=== PATIENT | female | born 1995 | race Caucasian/White ===

== ENCOUNTER 2017-04-27 21:42 | Emergency (ER) | payer OTHER ==
[~2017-04-27 21:42] MED LIST: PREN1PAK PO
--- NOTE | 2017-04-27 22:27 | PD ---
HPI Chief Complaint Possibly leaking fluid per vagina and contractions Date Seen: Apr 27, 2017 Time Seen: 22:22 Travel History International Travel<30 Days: No Contact w/Intl Traveler<30Days: No Known Affected Area: No History of Present Illness HPI Patient is 22-year-old white female at 39 weeks [facility] and presents combining of leakage of fluid per vagina contractions , no bleeding, heart rate tracing is reactive, she is vitaliy occasionally Weeks Gestation: 39 Para: 0 : 1 History Social History Alcohol Use: No Tobacco Use: No Substance Abuse: No Allergies-Medications (Allergen,Severity, Reaction): Coded Allergies: No Known Allergies (Unverified Adverse Reaction, Unknown, 04/27/17) Home Meds Active Scripts W/O Vit A W/ Fe Carbo Pack (Citranatal Assure Pack) 35-1 & 300 Mg Pack , 1 EA PO DAILY for Nutritional Supplement for 90 Days, #6 BLISTER 3 Refills 30 day supply. Prov:Bin Ovalle MD 03/05/17 Review of Systems General / Constitutional: No: Fever, Weight Gain, Chills, Other Eyes: No: Diploplia, Blurred Vision, Visual changes, Pain, Photophobia HENT: No: Headaches, Vertigo, Lightheadedness Cardiovascular: No: Irregular Rhythm, Chest Pain or Discomfort, Palpitations, Tachycardia, Syncope, Varicosities, Edema, Cyanosis Respiratory: No: Cough, Short of Breath, Other Gastrointestinal: No: Nausea, Vomiting, Diarrhea Genitourinary: No: Decreased Urinary Output, Oliguria Musculoskeletal: No: Limited ROM, Weakness, Cramping, Edema, Pain Skin: No Rash, No Itching, No Dryness, No Lumps, No Change in Pigmentation, No Change in Nails, No Alopecia, No Lesions Neurologic: No: Weakness, Dizziness, Syncope, Focal Abnormalities, Coordination Problem, Headache, Slurred Speech, Seizures Psychiatric: No: Depression, Suicidal Ideations, Homicidal Ideation Endocrine: No: Heat Intolerance, Cold Intolerance, Polydipsia, Polyuria, Other Physical Exam Narrative GENERAL: Well-nourished, well-developed patient. SKIN: Warm and dry. HEAD: Normocephalic and atraumatic. EYES: No scleral icterus. No injection or drainage. ENT: No nasal drainage noted. Mucous membranes pink. Airway patent. NECK: Supple, trachea midline. No JVD. CARDIOVASCULAR: Regular rate and rhythm without murmurs, gallops, or rubs. RESPIRATORY: Breath sounds equal bilaterally. No accessory muscle use. BREASTS: Bilateral exam showed no masses , no retractions, no nipple discharge. ABDOMEN/GI: Abdomen soft, non-tender, bowel sounds present, no rebound, no guarding Gravid to [39-] weeks size Fundal Height: [-39] GENITOURINARY: External Genitalia: intact and normal in appearance BUS glands: [-] Cervix: [-] Dilatation: [1-] Effacement: [-thick] Station: [-3] Presentation: [vtx-] Membranes: [intact amnisure neg] Uterine Contractions: [irreg-] FHT's: Category: [1-] Baseline: [133-] Reactive: [-yes] Variability: [mod-] Decels: [0-] EXTREMITIES: No cyanosis or edema. BACK: Nontender without obvious deformity. No CVA tenderness. NEUROLOGICAL: Awake and alert. Motor and sensory grossly within normal limits. Five out of 5 muscle strength in all muscle groups. Normal speech. Data Data Labs amnisure neg MDM Interpretation(s) Patient is 22-year-old white female at 39 weeks presents combining of leakage of fluid and contractions. There amnio sure is negative 2 night. Contractions are irregular. Cervix is 1 cm and thick. The heart rate tracing is reactive Plan Plan to discharge home to increase rest if needed., Increase fluids for hydration, Tylenol as needed when necessary, and follow-up with her OB provider, return here sooner for any increase leakage bleeding or pain. Diagnosis Diagnosis: Primary Impression: No leakage of amniotic fluid into vagina Additional Impression: Eloy Aguilar contractions Disposition: DISCHARGE HOME Condition: Stable Yasmany España II, MD Apr 27, 2017 22:27
[2017-04-27] MEDS ORDERED: PREN1TAB45 (22:43)
== END 2017-04-27 22:56 | disposition home or self-care (01) ==
LOC: HOBED 21:42
DX: O47.1 False labor at or after 37 completed weeks of gestation (principal); Z3A.39 39 weeks gestation of pregnancy
CPT/HCPCS: 59025; 84112

== ENCOUNTER 2017-05-01 11:24 | Inpatient (IN) | payer OTHER ==
[~2017-05-01] VITALS: Ht 165.1 cm; Wt 115.0 kg
[2017-05-01] VITALS (23 sets, daily range): BP systolic 103–149; BP diastolic 48–96; PULSE 68–110; RESP 18–20; TEMP 97.9–98; O2SAT 99–100
[~2017-05-01 11:24] MED LIST changes: +PREN1TAB45
[2017-05-01] MEDS: LACTATED RINGER'S 1000 ML INJ 1,000 ML IV SCH ×3 (12:09→22:33)
[2017-05-01] MEDS ORDERED: LACTATED RINGER'S 1000 ML INJ 1,000 ML IV PRN (12:09)
[2017-05-01] MEDS ORDERED: PENICILLIN G POTASSIUM INJ 5,000,000 UNITS in SODIUM CHLORIDE 0.9% INJ 100 ML IV ONE (12:15)
[2017-05-01] MEDS ORDERED: MINERAL OIL 10 ML VIAL TOPICAL PRN (12:15)
[2017-05-01] MEDS ORDERED: LIDOCAINE HCL 1% 50 ML VIAL INFIL PRN (12:15)
[2017-05-01] MEDS ORDERED: CITRIC ACID-SODIUM CITRATE LIQ 30 ML UDC PO SCH (12:15)
[2017-05-01] MEDS ORDERED: LIDOCAINE HCL 1% 50 ML VIAL I-DERMAL PRN (12:15)
[2017-05-01] MEDS ORDERED: SODIUM CHLORID 0.9% 500 ML INJ 500 ML IV PRN (12:15)
[2017-05-01] MEDS ORDERED: OXYTOCIN 30 UNITS-500ML PREMIX 500 ML IV ONE (12:15)
--- NOTE | 2017-05-01 12:22 | PD ---
HPI Chief Complaint Water broke Date Seen: May 01, 2017 Travel History International Travel<30 Days: No Contact w/Intl Traveler<30Days: No Known Affected Area: No History of Present Illness HPI Patient is a 22-year-old at 40/3 weeks gestation, patient of [facility] for [facility], that presents to the [facility] because her water broke around 8 AM this morning. Patient also states that she has been having some contractions that are about 8-10 minutes apart. She states that she has not had any problems during this . Her last ultrasound was at 38 weeks and the baby was head down and weighed around 8-10 pounds. She is expecting a baby boy. She denies vaginal bleeding, headache, shortness of breath, chest pain, blurry vision, dysuria, abnormal vaginal discharge. Notably, she is GBS positive. She does not desire an epidural at this time. Weeks Gestation: 40 Para: 0 : 1 History Past Medical History Narrative Medical GERD on Prilosec Obstetric History Obstetric History GBS Positive Past Surgical History Surgical History: No Previous Surgery Family History Narrative Family History Dad has hypertension Social History Alcohol Use: No Tobacco Use: No Substance Abuse: No Allergies-Medications (Allergen,Severity, Reaction): Coded Allergies: No Known Allergies (Unverified Adverse Reaction, Unknown, 04/30/17) Home Meds Active Scripts W/O Vit A W/ Fe Carbo Pack (Citranatal Assure Pack) 35-1 & 300 Mg Pack , 1 EA PO DAILY for Nutritional Supplement for 90 Days, #6 BLISTER 3 Refills 30 day supply. Prov:Bin Ovalle MD 03/05/17 Reported Medications Vit,Calc76/Iron/Folic (Pnv 29-1 Tablet) 29 Mg Iron-1 Mg Tablet, DAILY 04/27/17 Review of Systems General / Constitutional: No: Fever, Chills Eyes: No: Blurred Vision HENT: No: Headaches Cardiovascular: No: Chest Pain or Discomfort Respiratory: No: Cough, Short of Breath Gastrointestinal: No: Nausea, Vomiting, Diarrhea Genitourinary: No: Dysuria Musculoskeletal: Cramping, No: Weakness Skin: No Rash Neurologic: No: Weakness Physical Exam Narrative GENERAL: Well-nourished, well-developed patient. SKIN: Warm and dry. HEAD: Normocephalic and atraumatic. EYES: No scleral icterus. No injection or drainage. ENT: No nasal drainage noted. Mucous membranes pink. Airway patent. NECK: Supple, trachea midline. No JVD. CARDIOVASCULAR: Regular rate and rhythm without murmurs, gallops, or rubs. RESPIRATORY: Breath sounds equal bilaterally. No accessory muscle use. BREASTS: Bilateral exam showed no masses , no retractions, no nipple discharge. ABDOMEN/GI: Abdomen soft, non-tender, bowel sounds present, no rebound, no guarding Gravid to 40 weeks size GENITOURINARY: External Genitalia: intact and normal in appearance Cervix: Posterior Dilatation: 1cm Effacement: 60% Station: -3 Presentation: Cephalic Membranes: ruptured Uterine Contractions: present, spaced out FHT's: Category: I Baseline: 130 Reactive: multiple accels present Variability: Moderate Decels: None EXTREMITIES: No cyanosis or edema. BACK: Nontender without obvious deformity. No CVA tenderness. NEUROLOGICAL: Awake and alert. Motor and sensory grossly within normal limits. Five out of 5 muscle strength in all muscle groups. Normal speech. Data Data Orders Orders Ob (2e) Additional Admit Info (05/01/17 12:11) Admit To Inpatient (05/01/17 ) Code Status (05/01/17 12:09) Vital Signs (Adult) .Per protocol (05/01/17 12:09) Activity Oob Ad Carolynn (05/01/17 12:09) Heart (05/01/17 12:09) Amnioinfusion (05/01/17 12:09) Urinary Catheter Management .ONCE (05/01/17 12:09) Lactated Ringer's 1000 Ml Inj (Lr 1000 M (05/01/17 12:09) Lactated Ringer's 1000 Ml Inj (Lr 1000 M (05/01/17 12:09) Sodium Chlorid 0.9% 500 Ml Inj (Ns 500 M (05/01/17 12:15) Sodium Chlor 0.9% 1000 Ml Inj (Ns 1000 M (05/01/17 12:29) Lidocaine 1% Inj (50 Ml) (Xylocaine 1% I (05/01/17 12:15) Citric Acid-Sodium Citrate Liq (Bicitra (05/01/17 12:15) Fentanyl Inj (Fentanyl Inj) (05/01/17 12:15) Fentanyl Inj (Fentanyl Inj) (05/01/17 12:15) Penicillin G Potassium Inj (Pfizerpen-G (05/01/17 12:15) Penicillin G Potassium Inj (Pfizerpen-G (05/01/17 16:15) Complete Blood Count With Diff (05/01/17 12:09) Hold Clot (05/01/17 12:09) Abo/Rh Blood Type (05/01/17 12:09) Urinalysis - C+S If Indicated (05/01/17 12:09) Drug Screen, Random Urine (05/01/17 12:09) Rapid Plasma Regin (Rpr) W Ttr (05/01/17 12:09) Resp Oxygen Non Rebreathe Mask (05/01/17 ) ^ Epidural / Intrathecal Infus (05/01/17 12:09) Oxytocin 30 Units-500ml Premix (Pitocin (05/01/17 12:15) Lidocaine 1% Inj (50 Ml) (Xylocaine 1% I (05/01/17 12:15) Light Mineral Oil (Muri-Lube Oil) (05/01/17 12:15) Inpatient Certification (05/01/17 ) [facility] Medical Record Reviewed: Yes Interpretation(s) 22 year old at 40/3 weeks gestation presents with spontaneous rupture of membranes, amnisure positive. GBS positive. Plan 1. 40 weeks gestation of 2. Postdates 3. SROM 4. GBS Positive -Intrauterine, cephalic presentation - heart tones reassuring at category I -Admit to L&D -Start PCN prophylaxis for GBS -Epidural if desired -Pitocin to augment labor -Continue routine antepartum care -Expect vaginal delivery Eko,Tasia Odom MD R2 May 01, 2017 12:22
[2017-05-01] MEDS ORDERED: SODIUM CHLOR 0.9% 1000 ML INJ 1,000 ML IV PRN (12:29)
[2017-05-01] MEDS ORDERED: OXYTOCIN 30 UNITS-500ML PREMIX 500 ML IV SCH (12:45)
[2017-05-01 13:12] LABS: AUTOMATED NEUTROPHIL # 8.9 TH/MM3 (1.8-7.7); BASOPHIL % 0.2 % (0.0-2.0); EOSINOPHIL # 0.1 TH/MM3 (0-0.4); EOSINOPHIL % 0.4 % (0.0-4.0); HEMATOCRIT 35.1 % (35.0-46.0); HEMO FLAGS DIFF FINAL; LYMPH % 19.6 % (9.0-44.0); LYMPHOCYTE # 2.4 TH/MM3 (1.0-4.8); MEAN CELL VOLUME 75.1 FL (80.0-100.0); MEAN CORPUSCULAR HEMOGLOBIN 23.9 PG (27.0-34.0); MEAN CORPUSCULAR HGB CONC 31.9 % (32.0-36.0); MONO % 6.5 % (0.0-8.0); NEUT % 73.3 % (16.0-70.0); PLATELET COUNT 194 TH/MM3 (150-450); RED BLOOD COUNT 4.67 MIL/MM3 (4.00-5.30); RED CELL DISTRIBUTION WIDTH 17.4 % (11.6-17.2); WHITE BLOOD COUNT 12.2 TH/MM3 (4.0-11.0)
[2017-05-01 13:14] LABS: BLOOD, URINE NEG (NEG); COMMENT (UR) CULT NOT INDICATED; CULTURE IF INDICATED CULT NOT INDICATED; GLUCOSE,URINE NEG (NEG); KETONE, URINE NEG (NEG); MUCUS URINE FEW /lpf (OCC); NITRITE,URINE NEG (NEG); PH, URINE 5.5 (5.0-8.5); SQUAMOUS EPITHELIAL CELL URINE 1 /hpf (0-5); URINE COLOR YELLOW (YELLW/STRAW)
[2017-05-01] MEDS ORDERED: ONDANSETRON HCL 4 MG/2 ML VIAL ONE (19:44)
[2017-05-01] MEDS ORDERED: ONDANSETRON HCL 4 MG/2 ML VIAL IV PUSH PRN (20:15)
[2017-05-01] MEDS ORDERED: ePHEDrine/NS 25 MG/5 ML SYRINGE ONE (20:21)
[2017-05-01] MEDS ORDERED: fentaNYL 2MCG-BUPIV 0.125% INJ 100 ML ONE (20:21)
--- NOTE | 2017-05-01 22:12 | PD.LABORPN ---
Subjective Subjective Patient resting comfortably on her left side. Recently received amnioinfusion and pitocin stopped. No complaints at this time. Objective Vital Signs Vital Signs Date Time Temp Pulse Resp B/P (MAP) Pulse Ox O2 Delivery O2 Flow Rate FiO2 05/01/17 22:01 91 108/48 (68) 05/01/17 21:31 108 141/73 (95) 05/01/17 21:30 98 99 05/01/17 21:26 106 130/76 (94) 05/01/17 21:25 110 99 05/01/17 21:21 96 123/66 (85) 05/01/17 21:20 98 99 05/01/17 21:16 93 135/72 (93) 05/01/17 21:15 99 99 05/01/17 21:11 84 131/81 (98) 05/01/17 21:10 100 05/01/17 21:10 80 05/01/17 21:06 89 135/82 (99) 05/01/17 21:05 100 05/01/17 21:05 92 05/01/17 21:02 20 05/01/17 21:01 79 149/80 (103) 05/01/17 20:00 94 148/83 (104) 05/01/17 19:36 97.9 20 05/01/17 19:03 83 136/82 (100) 05/01/17 19:01 68 146/96 (113) Objective Pelvic Exam: Dilatation: 2 Effacement: 80 Station: -2 Presentation: vertex Membranes: ruptured FHT's: Category: 2 Baseline: 125 Reactive: yes Variability: moderate Decels: variable Weeks Gestation: 40 Assessment/Plan Assessment and Plan 22 year old at 40/3 weeks gestation presents with spontaneous rupture of membranes, amnisure positive. GBS positive. 1. 40 weeks gestation of 2. Postdates 3. SROM 4. GBS Positive -Intrauterine vertex - heart tones category 2 -PCN prophylaxis for GBS -Pitocin temporarily stopped -Recently administered amnioinfusion -Continue to monitor progress -Expect vaginal delivery, consider for non-reassuring tracings Simone Shore MD R1 May 01, 2017 22:11
[2017-05-01] MEDS ORDERED: DO NOT ADMINISTER ANTICOAGULANTS PRN (22:15)
[2017-05-01] MEDS ORDERED: ePHEDrine/NS 25 MG/5 ML SYRINGE IV PUSH PRN (22:15)
[2017-05-01] MEDS ORDERED: NO SYSTEM NARCOTICS PRN (22:15)
[2017-05-01] MEDS: PENICILLIN G POTASSIUM INJ 2,500,000 UNITS in SODIUM CHLORIDE 0.9% INJ 100 ML IV SCH (22:31)
[2017-05-02] VITALS (58 sets, daily range): BP systolic 113–146; BP diastolic 55–94; PULSE 73–111; RESP 16–22; TEMP 97.5–99.3; O2SAT 97–99
[2017-05-02] MEDS: fentaNYL 2MCG-BUPIV 0.125% 100 ML EPIDURAL SCH ×2 (00:31→04:37)
[2017-05-02] MEDS: PENICILLIN G POTASSIUM INJ 2,500,000 UNITS in SODIUM CHLORIDE 0.9% INJ 100 ML IV SCH ×4 (02:10→18:00)
[2017-05-02] MEDS: LACTATED RINGER'S 1000 ML INJ 1,000 ML IV SCH (04:08)
--- NOTE | 2017-05-02 07:46 | PD.LABORPN ---
Subjective Subjective Overnight, pt received epidural and baby was intolerant of pitocin which needed to be stopped several times. In btw, excellent variability and accels. This morning, pt rechecked and is /-2. Experiencing nausea. Has FSE in place. Objective Vital Signs Vital Signs Date Time Temp Pulse Resp B/P (MAP) Pulse Ox O2 Delivery O2 Flow Rate FiO2 05/02/17 07:16 99.2 18 05/02/17 07:01 78 118/73 (88) 05/02/17 06:31 125/71 (89) 05/02/17 06:31 93 05/02/17 06:01 83 122/65 (84) 05/02/17 05:31 91 138/58 (84) 05/02/17 05:07 18 05/02/17 05:01 83 129/78 (95) 05/02/17 04:59 18 05/02/17 04:58 97.5 05/02/17 04:31 86 126/68 (87) 05/02/17 04:01 77 113/68 (83) 05/02/17 03:31 78 120/69 (86) 05/02/17 03:01 80 127/70 (89) 05/02/17 02:31 77 128/74 (92) 05/02/17 02:10 98.3 18 05/02/17 02:01 83 124/72 (89) 05/02/17 01:31 80 123/68 (86) 05/02/17 01:01 89 123/75 (91) 05/02/17 00:50 18 05/02/17 00:31 89 127/82 (97) 05/02/17 00:01 73 132/88 (103) Objective FHTs: 115, +accels, occasional variable decels, moderate variability [place]: ctx q 1-4m Cvx: /-1 Weeks Gestation: 40 Assessment/Plan Assessment and Plan 22y/o G1 @ 40.4wks with PROM -- watching FHTs closely, mostly cat 1 to 2 tracing -- d/c pitocin and allow natural labor at this time, restart PRN -- bicitra/zofran for nausea Dispo: pt counseled on possible need for c/s if baby does not tolerate active labor Rm Soto MD 16, 2017 07:46
--- NOTE | 2017-05-02 10:43 | PD.LABORPN ---
Subjective Subjective Pt comfortable, s/p epidural. Objective Vital Signs Vital Signs Date Time Temp Pulse Resp B/P (MAP) Pulse Ox O2 Delivery O2 Flow Rate FiO2 05/02/17 07:16 99.2 18 05/02/17 07:01 78 118/73 (88) 05/02/17 06:31 125/71 (89) 05/02/17 06:31 93 05/02/17 06:01 83 122/65 (84) 05/02/17 05:31 91 138/58 (84) 05/02/17 05:07 18 05/02/17 05:01 83 129/78 (95) 05/02/17 04:59 18 05/02/17 04:58 97.5 05/02/17 04:31 86 126/68 (87) 05/02/17 04:01 77 113/68 (83) 05/02/17 03:31 78 120/69 (86) 05/02/17 03:01 80 127/70 (89) FHR 110s, good variability, no decells. cat 1 now TOCO q 2-5 minutes. Pitocin at 5mu/min. SVE: 5-6cm/80%/-2. Objective Pelvic Exam: Cervix: [soft-] Dilatation: [5-6cm] Effacement: [80%] Station: [-2] Presentation: vertex] Membranes: ruptured] Uterine Contractions: [2-6minutes] PITOCIN at 2mu/min, IUPC in place FHT's: Category: [1] Baseline: [110s] FSE applied. Reactive: [+] Variability: [moderate] Decels: [none] Weeks Gestation: 40 Assessment/Plan Assessment and Plan 22 yo at 40 weeks and 4 days. SROM Continue Pitocin per protocol. Will recheck in 2 hours. Expectant. Johnathan Miranda MD May 02, 2017 10:43
--- NOTE | 2017-05-02 16:32 | PD.LABORPN ---
Subjective Subjective Remains comfortable with epidural. Objective Vital Signs Vital Signs Date Time Temp Pulse Resp B/P (MAP) Pulse Ox O2 Delivery O2 Flow Rate FiO2 05/02/17 10:51 20 05/02/17 10:31 93 130/80 (97) 05/02/17 10:01 98 125/78 (94) 05/02/17 09:31 91 115/74 (88) 05/02/17 09:01 85 126/71 (89) 05/02/17 08:31 94 122/75 (91) Objective Pelvic Exam: Cervix: [soft] Dilatation: [6cm] Effacement: [90%] Station: [-2] Presentation: [vertex] Membranes: [ ruptured] Uterine Contractions: [every 2-3 minutes] FHT's: Category: [1] Baseline: [110s] Reactive: [Y] Variability: [good] Decels: [none] Weeks Gestation: 40 Assessment/Plan Assessment and Plan Term labor. Patient has made minimal cervical change in 2 hours. FHR is Cat 1, and she remains comfortable. There is 2+ caput, no moulding. We have discussed C Section for arrest of dilatation. Patient has requested 'more time'. We plan re-evaluation in 2 hours, as long as FHR is reassuring. Johnathan Miranda MD May 02, 2017 16:32
--- NOTE | 2017-05-02 18:28 | PD.OB.ANTE ---
Subjective Interval History Remains comfortable with epidural. Objective Vital Signs Vital Signs Date Time Temp Pulse Resp B/P (MAP) Pulse Ox O2 Delivery O2 Flow Rate FiO2 05/02/17 17:01 81 121/73 (89) 05/02/17 10:51 20 05/02/17 10:31 93 130/80 (97) 05/02/17 10:01 98 125/78 (94) 05/02/17 09:31 91 115/74 (88) 05/02/17 09:01 85 126/71 (89) 05/02/17 08:31 94 122/75 (91) 05/02/17 08:01 90 123/76 (92) 05/02/17 07:31 85 114/63 (80) 05/02/17 07:16 99.2 18 05/02/17 07:01 78 118/73 (88) 05/02/17 06:31 125/71 (89) 05/02/17 06:31 93 05/02/17 06:01 83 122/65 (84) 05/02/17 05:31 91 138/58 (84) 05/02/17 05:07 18 05/02/17 05:01 83 129/78 (95) 05/02/17 04:59 18 05/02/17 04:58 97.5 05/02/17 04:31 86 126/68 (87) 05/02/17 04:01 77 113/68 (83) 05/02/17 03:31 78 120/69 (86) 05/02/17 03:01 80 127/70 (89) 05/02/17 02:31 77 128/74 (92) 05/02/17 02:10 98.3 18 05/02/17 02:01 83 124/72 (89) 05/02/17 01:31 80 123/68 (86) 05/02/17 01:01 89 123/75 (91) 05/02/17 00:50 18 05/02/17 00:31 89 127/82 (97) 05/02/17 00:01 73 132/88 (103) 05/01/17 23:31 80 125/82 (96) 05/01/17 23:01 85 103/57 (72) 05/01/17 22:52 98.0 18 05/01/17 22:31 93 113/55 (74) 05/01/17 22:01 91 108/48 (68) 05/01/17 21:31 108 141/73 (95) 05/01/17 21:30 98 99 05/01/17 21:26 106 130/76 (94) 05/01/17 21:25 110 99 05/01/17 21:21 96 123/66 (85) 05/01/17 21:20 98 99 05/01/17 21:16 93 135/72 (93) 05/01/17 21:15 99 99 05/01/17 21:11 84 131/81 (98) 05/01/17 21:10 100 05/01/17 21:10 80 05/01/17 21:06 18 05/01/17 21:06 89 135/82 (99) 05/01/17 21:05 100 05/01/17 21:05 92 05/01/17 21:02 20 05/01/17 21:01 79 149/80 (103) 05/01/17 20:00 94 148/83 (104) 05/01/17 19:36 97.9 20 05/01/17 19:03 83 136/82 (100) 05/01/17 19:01 68 146/96 (113) Physical Exam GENERAL: Well-nourished, well-developed patient. CARDIOVASCULAR: Regular rate and rhythm without murmurs, gallops, or rubs. RESPIRATORY: Breath sounds equal bilaterally. No accessory muscle use. ABDOMEN/GI: Abdomen soft, non-tender. Fundus: [-] GENITOURINARY: External Genitalia: extensive vulval edema Cervix: [soft] Dilatation: [6cm] Effacement: [80%] Station: [-2] Presentation: [vertex] caput 2+ Membranes: [ruptured] Uterine Contractions: [2-3 minutes] Pitocin at 8mu/min. FHT's: Category: [1] Baseline: [110s] Reactive: [-] Variability: [good] Decels: [none] EXTREMITIES: No cyanosis or edema, non-tender, without signs of DVT. Assessment and Plan Assessment and Plan Term labor. status reassuring. However patient remains at 6cm, with 2 + caput, and worsening vulval edema. Plan is to proceed to C Section for arrest of dilatation. Johnathan Miranda MD May 02, 2017 18:28
[2017-05-02] MEDS ORDERED: ACETAMINOPHEN 1000 MG/100 ML 100 ML IV ONE (19:04)
--- NOTE | 2017-05-02 20:09 | PD.OB.DELI ---
Procedure Note Section Procedure Pre Op Diagnosis: (1) Failure to progress in labor (2) Postmaturity , 40-42 weeks gestation Post Op Diagnosis: (1) Failure to progress in labor (2) Postmaturity , 40-42 weeks gestation Performed by Johnathan Miranda Procedure: Primary Low Transverse Sec Indication for delivery: Other (Arrest of dilatation) Previous condition: None Informed consent obtained: For anesthesia, For procedure Confirmed correct: Time-out taken Anesthesia: Epidural Medication prior to procedure: As documented in eMAR, Antibiotics, IV Monitoring during procedure: Blood pressure monitoring, paperhanger pipe, Pulse oximetry Urinary catheter: Inserted using sterile technique, To dependent drainage Sterile preparation: With 2% chlorexidine (Hibiclens), With drapes to expose affected area Position: Supine with wedge to right side Operative Features Skin Incision: Pfannenstiel Uterine Incision: Low transverse w/knife / blunt ext Membranes Ruptured: Previously Presentation: Occiput anterior Delivery date: May 02, 2017 Delivery time: 19:01 Delivery of infant: Umbilical cord Infant: Male, Single One Minute : 7 Five Minute : 9 Status of infant: Viable Placenta delivered: Intact Medications: Antibiotics, Oxytocin Procedure tolerated: Well Maternal Condition: Stable Condition: Stable Procedure in detail Patient was brought into the OR where she was properly identified and informed consent confirmed. She was positioned in dorsal supine position with slight leftward tilt. A Quiñones catheter had previously been inserted and this was allowed to drain continuously after gravity throughout the case. Her epidural anesthesia was redosed. She was then cleansed and draped in standard sterile fashion. After confirming adequacy of anesthesia, pfannensteil incision was made with scalpel and taken through subcutaneous tissue with Bovie cautery. Rectus fascia was then scored in the midline and extended bilaterally with curved Be scissors. Rectus fascia was then elevated between two Bret forceps and dissected off from the underlying rectus muscles. This was done for both superior and inferior aspects of the incision. The rectus muscles were then in the midline and underlying peritoneum was identified. This was elevated between ttwo hemostats and entered sharply with [place] .The peritoneal incision was then extended superiorly and inferiorly with careful visualization of the bladder. Bladder blade was positioned and pelvic contents evaluated. Vesico uterine reflection was identified, tented upwards with pickups and extended bilaterally with [place] scissors, and bladder flap developed digitally., The bladder blade was then repositioned. Fresh scalpel was used to make a transverse incision over the lower uterine segment and amniotomy was then with clear fluid. Infant was delivered from occipito-anterior position, and a loose nuchal cord was easily delivered. Cord was clamped and cut after delay of 45 seconds. Placenta and membranes were delivered spontaneously , complete with 3 vessel cord.and uterine cavity was cleansed of all clots and debris. The uterus was then exteriorized and the incision closed in 3 layer, the first of 0 Vicryl in continuous locking fashion for hemostasis and the second of the same suture material that was used to imbricate the first. The vesico-uterine reflection was then reapproximated with 2.0 Vicryl. The uterus was returned to its intraperitoneal location after the gutters had been cleared of all clots and debris. Interceed adhesion barrier was placed over the incision and uterine body. Parietal peritoneum was then closed with 2.0 Viryl and same suture used to reapproximate edges of rectus muscles in midline. Rectus fascia closed with 1PDS. subcutaneous space irrigated with warm saline and closed with 2.0 Vicryl in continuous fashion. Finally skin closed with 3.0 Monocryl in cubcutaneous fashion. Patient tolerated procedure well and transferred stable to Recovery. Johnathan Miranda MD May 02, 2017 20:09
[2017-05-02] MEDS ORDERED: ACETAMINOPHEN 325 MG TAB PO PRN (20:15)
[2017-05-02] MEDS ORDERED: SODIUM CHLORIDE 0.9% FLUSH 10 ML FLUSH IV FLUSH PRN (20:15)
[2017-05-02] MEDS ORDERED: IBUPROFEN 600 MG TAB PO PRN (20:15)
[2017-05-02] MEDS ORDERED: ONDANSETRON HCL 4 MG/2 ML VIAL IV PUSH PRN (20:15)
[2017-05-02] MEDS ORDERED: OXYTOCIN 30 UNITS-500ML PREMIX 500 ML IV ONE (20:15)
[2017-05-02] MEDS ORDERED: ZOLPIDEM TARTRATE 5 MG TAB PO PRN (20:15)
[2017-05-02] MEDS ORDERED: SIMETHICONE 80 MG CHEWABLE TAB PO PRN (20:15)
[2017-05-02] MEDS ORDERED: oxyCODONE/ACETAMINOPHEN 5 MG/325 MG TAB PO PRN (20:15)
[2017-05-02] MEDS ORDERED: KETOROLAC TROMETHAMINE 60 MG/2 ML (IM) VIAL IM PRN (20:15)
[2017-05-02] MEDS ORDERED: SODIUM CHLORIDE 0.9% FLUSH 10 ML FLUSH IV FLUSH SCH (21:00)
[2017-05-02] MEDS ORDERED: EPIDURAL-NALOXONE HCL 0.4 MG/ML AMP IV PUSH PRN (21:30)
[2017-05-02] MEDS ORDERED: EPIDURAL-DIPHENHYDRAMINE HCL 50 MG/ML VIAL IV PUSH PRN (21:30)
[2017-05-02] MEDS ORDERED: EPIDURAL-NO SYSTEMIC NARCOTICS PRN (21:30)
[2017-05-02] MEDS ORDERED: EPIDURAL-DIPHENHYDRAMINE HCL 50 MG CAP PO PRN (21:30)
[2017-05-02] MEDS ORDERED: EPIDURAL-DO NOT ADMINISTER ANTICOAGULANTS PRN (21:30)
[2017-05-03] VITALS (12 sets, daily range): BP systolic 112–133; BP diastolic 66–88; PULSE 67–101; RESP 14–20; TEMP 98.4–99
[2017-05-03] MEDS ORDERED: LACTATED RINGER'S 1000 ML INJ 1,000 ML IV SCH (01:09)
[2017-05-03 05:30] LABS: BASOPHIL % 0.2 % (0.0-2.0); HEMATOCRIT 29.4 % (35.0-46.0); HEMO FLAGS DIFF FINAL; LYMPH % 8.6 % (9.0-44.0); LYMPHOCYTE # 1.7 TH/MM3 (1.0-4.8); MEAN CELL VOLUME 75.7 FL (80.0-100.0); MEAN CORPUSCULAR HEMOGLOBIN 24.1 PG (27.0-34.0); MEAN CORPUSCULAR HGB CONC 31.8 % (32.0-36.0); MONO % 4.2 % (0.0-8.0); PLATELET COUNT 164 TH/MM3 (150-450); RED BLOOD COUNT 3.89 MIL/MM3 (4.00-5.30); RED CELL DISTRIBUTION WIDTH 17.8 % (11.6-17.2); WHITE BLOOD COUNT 19.5 TH/MM3 (4.0-11.0)
[2017-05-03] MEDS ORDERED: OXYTOCIN 30 UNITS-500ML PREMIX 500 ML IV PRN (06:15)
--- NOTE | 2017-05-03 09:53 | HHI.OB ---
Subjective Post Operative Day: 1 Remarks Patient is a 22-year-old delivered at 40 weeks and 4 days. Patient is /postop day 1 after Primary Low Transverse Section for arrest of dilatation. Patient's pain is well-controlled. Patient reports drinking but not yet eating without any nausea or vomiting. Patient reports minimal bleeding. Patient has not passed gas or bowel movements. Patient is not yet walking but is without lower extremity pain or shortness of breath. Patient reports desire for contraception OCPs and breast-feeding. Objective Vitals/I&O Vital Signs Date Time Temp Pulse Resp B/P (MAP) Pulse Ox O2 Delivery O2 Flow Rate FiO2 05/03/17 06:10 16 05/03/17 06:10 14 05/03/17 05:20 98.4 76 16 122/69 (86) 05/03/17 04:20 14 05/03/17 03:30 14 05/03/17 03:00 14 05/03/17 01:45 98.7 67 16 121/77 (92) 05/03/17 01:30 14 05/03/17 00:45 14 05/03/17 00:30 16 05/02/17 23:48 16 05/02/17 23:30 16 05/02/17 22:30 16 05/02/17 22:00 99.1 76 16 137/79 (98) 05/02/17 20:49 98.4 05/02/17 20:45 139/94 (109) 05/02/17 20:44 81 18 97 05/02/17 20:30 83 21 146/88 (107) 98 05/02/17 20:15 98 05/02/17 20:14 88 18 115/55 (75) 05/02/17 20:00 87 20 116/57 (76) 99 05/02/17 19:45 98.4 111 22 140/70 (93) 05/02/17 19:45 99 05/02/17 18:01 95 125/82 (96) 05/02/17 18:00 18 05/02/17 18:00 99.3 05/02/17 17:31 85 119/84 (96) 05/02/17 17:01 81 121/73 (89) 05/02/17 16:31 106 131/88 (102) 05/02/17 16:01 78 118/72 (87) 05/02/17 15:31 77 120/68 (85) 05/02/17 15:01 80 120/74 (89) 05/02/17 14:31 83 120/72 (88) 05/02/17 14:01 95 116/91 (99) 05/02/17 13:31 76 120/81 (94) 05/02/17 13:30 98.9 18 05/02/17 13:01 85 116/78 (91) 05/02/17 12:31 80 119/73 (88) 05/02/17 12:01 89 122/76 (91) 05/02/17 11:31 79 115/67 (83) 05/02/17 11:01 92 128/79 (95) 05/02/17 10:51 20 05/02/17 10:31 93 130/80 (97) 05/02/17 10:01 98 125/78 (94) Result Diagram: 05/03/17 0525 Objective Remarks GENERAL: Well-nourished, well-developed obese female patient. CARDIOVASCULAR: Regular rate and rhythm without murmurs, gallops, or rubs. RESPIRATORY: Breath sounds equal bilaterally. No accessory muscle use. ABDOMEN/GI: Abdomen soft, non-tender, bowel sounds present. Incision: Clean, dry and intact. Fundus: Firm, non-tender at umbilicus. GENITOURINARY: Light to moderate bleeding. Quiñones in place draining clear dark yellow urine. EXTREMITIES: No cyanosis or edema, non-tender, without signs of DVT. Medications and IVs Current Medications Medications (Trade) Dose Ordered Sig/Aarti Route Start Time Stop Time Status Last Admin Lactated Ringer's 1,000 ml @ 100 mls/hr Q10H IV 05/03/17 01:09 05/03/17 21:08 Oxytocin 500 ml @ 100 mls/hr UNSCH X1 PRN IV 05/03/17 06:15 05/04/17 06:14 (NS Flush) 2 ml BID IV FLUSH 05/02/17 21:00 (NS Flush) 2 ml UNSCH PRN IV FLUSH 05/02/17 20:15 (Mylicon Chew) 80 mg QID PRN PO 05/02/17 20:15 (Tylenol) 650 mg Q6H PRN PO 05/02/17 20:15 (Motrin) 800 mg Q6H PRN PO 05/02/17 20:15 (Toradol Inj) 30 mg Q6H PRN IM 05/02/17 20:15 05/03/17 20:14 05/02/17 22:33 (Percocet 5-325 Mg) 1 tab Q4H PRN PO 05/02/17 20:15 (Percocet 5-325 Mg) 2 tab Q4H PRN PO 05/02/17 20:15 (Faiza-Colace) 2 tab Q12H PRN PO 05/02/17 20:15 (Ambien) 5 mg HS PRN PO 05/02/17 20:15 (M-M-R Ii Inj) 0.5 ml ONCE ONCE SQ 05/03/17 16:00 05/03/17 16:01 (Boostrix Inj) 0.5 ml ONCE ONCE IM 05/03/17 16:00 05/03/17 16:01 (Zofran Inj) 4 mg Q6H PRN IV PUSH 05/02/17 20:15 Cefazolin Sodium 1000 mg/Sodium Chloride 100 ml @ 200 mls/hr Q8H IV 05/03/17 03:00 05/03/17 11:29 05/03/17 04:27 Miscellaneous Information NO SYSTEMIC NARCOTICS TO BE GIVEN FO... UNSCH PRN .XX 05/02/17 21:30 05/03/17 21:29 (Narcan Inj) 0.4 mg UNSCH PRN IV PUSH 05/02/17 21:30 05/03/17 21:29 (Benadryl Inj) 25 mg Q6H PRN IV PUSH 05/02/17 21:30 05/03/17 21:29 (Benadryl) 50 mg Q6H PRN PO 05/02/17 21:30 05/03/17 21:29 Miscellaneous Information ALL NURSING DEPARTMENTS UNSCH PRN .XX 05/02/17 21:30 05/03/17 21:29 Assessment/Plan Problem List: (1) S/P ICD Codes: Z98.891 - History of uterine scar from previous surgery Assessment and Plan Patient is a 22-year-old delivered at 40 weeks and 4 days. Patient is /postop day 1 after Primary Low Transverse Section for arrest of dilatation. Patient was counseled to do 6 weeks of pelvic rest. Patient was counseled to follow up in 1 and 6 weeks. Patient requested follow- up and contraception. --AF VSS --Continue routine care --Motrin and Percocet when necessary for pain --Encourage OOB --Pelvic rest for 6 weeks will need follow-up appointment at that time. One week follow-up for incision check. --Contraception: OCPs --Anticipate discharge in 1-2 days d/w Dr. Ruth Ron,Simone Ham MD R2 May 03, 2017 09:53
[2017-05-03] MEDS ORDERED: ORTH0.35 PO (09:56)
[2017-05-03] MEDS: oxyCODONE/ACETAMINOPHEN 5 MG/325 MG TAB PO PRN ×3 (10:03→19:58)
[2017-05-03] MEDS: IBUPROFEN 800 MG TAB PO PRN ×2 (10:27→19:58)
[2017-05-03] MEDS ORDERED: MEASLES, MUMPS, RUBELLA VACCINE 0.5 ML VIAL SQ ONE (16:00)
[2017-05-03] MEDS ORDERED: DIPHTH/TETANUS/ACEL PERTUSSIS (BOOSTER) 0.5 ML VIAL/PFS IM ONE (16:00)
[2017-05-03] MEDS: DOCUSATE SODIUM 50 MG/SENNA 8.6 MG TAB PO PRN (19:58)
[2017-05-04] MEDS: oxyCODONE/ACETAMINOPHEN 5 MG/325 MG TAB PO PRN ×3 (05:31→23:54)
[2017-05-04] MEDS: IBUPROFEN 800 MG TAB PO PRN ×3 (05:31→23:54)
[2017-05-04 08:00] VITALS: BP 121/79; PULSE 80; RESP 18; TEMP 97.9; O2SAT 99
--- NOTE | 2017-05-04 08:39 | HHI.OB ---
Subjective Post Day: 2 Remarks Postoperative day number 2. AFVSS overnight. Pain controlled. Incision not draining. Decreased lochia. Denies dysuria. No breast tenderness. She is feeding the baby via breast. Appetite good. No nausea or vomiting. + flatus and bowel movement. Ambulating well. Denies calf pain, shortness of breath, or cough. Otherwise, she is doing well this morning and has no other complaints. Objective Vitals/I&O Vital Signs Date Time Temp Pulse Resp B/P (MAP) Pulse Ox O2 Delivery O2 Flow Rate FiO2 05/04/17 08:00 97.9 80 18 121/79 (93) 99 05/03/17 19:30 98.7 05/03/17 19:30 90 17 133/88 (103) 05/03/17 15:30 120/66 (84) 05/03/17 15:30 98.4 89 18 05/03/17 09:20 99.0 101 20 112/69 (83) Objective Remarks GENERAL: Well-nourished, well-developed patient. CARDIOVASCULAR: Regular rate and rhythm. RESPIRATORY: Breath sounds equal bilaterally. No accessory muscle use. ABDOMEN/GI: Abdomen soft, non-tender. Fundus: Firm, non-tender at umbilicus. Incision dry/clean/intact. GENITOURINARY: Light to moderate bleeding. EXTREMITIES: No cyanosis or edema, non-tender, without signs of DVT. Medications and IVs Current Medications Medications (Trade) Dose Ordered Sig/Aarti Route Start Time Stop Time Status Last Admin (NS Flush) 2 ml BID IV FLUSH 05/02/17 21:00 (NS Flush) 2 ml UNSCH PRN IV FLUSH 05/02/17 20:15 (Mylicon Chew) 80 mg QID PRN PO 05/02/17 20:15 (Tylenol) 650 mg Q6H PRN PO 05/02/17 20:15 (Percocet 5-325 Mg) 1 tab Q4H PRN PO 05/02/17 20:15 05/04/17 05:31 (Percocet 5-325 Mg) 2 tab Q4H PRN PO 05/02/17 20:15 (Faiza-Colace) 2 tab Q12H PRN PO 05/02/17 20:15 05/03/17 19:58 (Ambien) 5 mg HS PRN PO 05/02/17 20:15 (Zofran Inj) 4 mg Q6H PRN IV PUSH 05/02/17 20:15 (Motrin) 800 mg Q8H PRN PO 05/03/17 10:15 05/04/17 05:31 Assessment/Plan Problem List: (1) S/P ICD Codes: Z98.891 - History of uterine scar from previous surgery Assessment and Plan Patient is a 22-year-old delivered at 40 weeks and 4 days. Patient is /postop day 2 after Primary Low Transverse Section for arrest of dilatation. Patient was counseled to do 6 weeks of pelvic rest. Patient was counseled to follow up in 1 and 6 weeks. Patient requested follow- up and contraception. 1. Post- --AF VSS --Continue routine care --Motrin and Percocet when necessary for pain --Encourage OOB --Pelvic rest for 6 weeks will need follow-up appointment at that time. One week follow-up for incision check. --Contraception: wants OCPs --Anticipate discharge in 1-2 days d/w Dr. Taco Pruitt,Danitza Mahan MD R1 May 04, 2017 08:39
[2017-05-04] MEDS ORDERED: PERI PO (08:42)
[2017-05-04] MEDS ORDERED: IBUP1TAB7 PO (08:42)
[2017-05-04] MEDS ORDERED: OXYC1TAB63 PO (08:44)
--- NOTE | 2017-05-04 08:45 | HHI.DCPOC ---
Discharge Care Plan Diagnosis: (1) S/P Report Symptoms to Your Doctor -Temperature above 100.5 degrees -Redness, of incision or excessive or foul smelling drainage -Unusual pain or calf pain -Increased vaginal bleeding -Painful or difficulty urinating -Feelings of extreme sadness or anxiety after 2 weeks Goals to Promote Your Health * To prevent worsening of your condition and complications * To maintain your health at the optimal level Directions to Meet Your Goals Take your medications as prescribed Follow your dietary instruction Follow activity as directed Ensure plenty of rest for recovery Drink fluids for hydration Keep your appointments as scheduled Take your immunizations and boosters as scheduled If your symptoms worsen call your PCP, if no PCP go to Urgent Care Center or Emergency Room Smoking is Dangerous to Your Health. Avoid second hand smoke Call the 24-hour crisis hotline for domestic abuse at Danitza Pruitt MD R1 May 04, 2017 08:45
[2017-05-04] MEDS: DOCUSATE SODIUM 50 MG/SENNA 8.6 MG TAB PO PRN (14:13)
[2017-05-04 21:00] VITALS: BP 138/67; PULSE 102; RESP 18; TEMP 98.2
[2017-05-05] MEDS ORDERED: OXYC1TAB63 PO (06:55)
[2017-05-05 08:00] VITALS: BP 117/80; PULSE 77; RESP 16; TEMP 98.5; O2SAT 98
--- NOTE | 2017-05-05 09:01 | HHI.OB ---
Subjective Post Operative Day: 3 Remarks Postoperative day number 3. AFVSS overnight. Pain controlled. Incision not draining. Decreased lochia. Denies dysuria. No breast tenderness. She is feeding the baby via breast. Appetite good. No nausea or vomiting. + flatus and bowel movement. Ambulating well. Denies calf pain, shortness of breath, or cough. Otherwise, she is doing well this morning and has no other complaints. Objective Vitals/I&O Vital Signs Date Time Temp Pulse Resp B/P (MAP) Pulse Ox O2 Delivery O2 Flow Rate FiO2 05/04/17 21:00 98.2 102 18 138/67 (90) Result Diagram: 05/03/17 0534 Objective Remarks GENERAL: Well-nourished, well-developed obese female patient. CARDIOVASCULAR: Regular rate and rhythm without murmurs, gallops, or rubs. RESPIRATORY: Breath sounds equal bilaterally. No accessory muscle use. ABDOMEN/GI: Abdomen soft, non-tender, bowel sounds present. Incision: Clean, dry and intact. Fundus: Firm, non-tender at umbilicus. GENITOURINARY: Light to moderate bleeding. Quiñones in place draining clear dark yellow urine. EXTREMITIES: No cyanosis or edema, non-tender, without signs of DVT. Medications and IVs Current Medications Medications (Trade) Dose Ordered Sig/Aarti Route Start Time Stop Time Status Last Admin (NS Flush) 2 ml BID IV FLUSH 05/02/17 21:00 (NS Flush) 2 ml UNSCH PRN IV FLUSH 05/02/17 20:15 (Mylicon Chew) 80 mg QID PRN PO 05/02/17 20:15 (Tylenol) 650 mg Q6H PRN PO 05/02/17 20:15 (Percocet 5-325 Mg) 1 tab Q4H PRN PO 05/02/17 20:15 05/04/17 23:54 (Percocet 5-325 Mg) 2 tab Q4H PRN PO 05/02/17 20:15 (Faiza-Colace) 2 tab Q12H PRN PO 05/02/17 20:15 05/04/17 14:13 (Ambien) 5 mg HS PRN PO 05/02/17 20:15 (Zofran Inj) 4 mg Q6H PRN IV PUSH 05/02/17 20:15 (Motrin) 800 mg Q8H PRN PO 05/03/17 10:15 05/04/17 23:54 Assessment/Plan Problem List: (1) S/P ICD Codes: Z98.891 - History of uterine scar from previous surgery Assessment and Plan Patient is a 22-year-old delivered at 40 weeks and 4 days. Patient is /postop day 3 after Primary Low Transverse Section for arrest of dilatation. Patient was counseled to do 6 weeks of pelvic rest. Patient was counseled to follow up in 1 week for incision check. 1. Post- --AFVSS --Continue routine care --Motrin and Percocet when necessary for pain, will discharge with 15 tabs Percocet --Encourage OOB --Pelvic rest for 6 weeks will need follow-up appointment at that time. One week follow-up for incision check. --Contraception: Progestin OCP ordered, pt to follow up for refills --Discharge today d/w hannah [address] Kara L MD R2 May 05, 2017 09:01
[2017-05-05] MEDS: IBUPROFEN 800 MG TAB PO PRN (09:06)
[2017-05-05] MEDS: oxyCODONE/ACETAMINOPHEN 5 MG/325 MG TAB PO PRN (09:06)
== END 2017-05-05 14:00 | disposition home or self-care (01) | DRG 766 ==
LOC: HOBED 11:24 → H2EA 12:19 → H1EA 05-02 21:03
PROVIDERS: ADMIT Obstetrics & Gynecology; ATTEND Obstetrics & Gynecology
PROC: 10D00Z1 Extraction of Products of Conception, Low, Open Approach (ICD-10-PCS; principal; 2017-05-02)
PROC: 3E0P05Z Introduction of Adhesion Barrier into Female Reproductive, Open Approach (ICD-10-PCS; 2017-05-02)
DX: O48.0 Post-term pregnancy (principal); K21.9 Gastro-esophageal reflux disease without esophagitis; O99.62 Diseases of the digestive system complicating childbirth; O99.824 Streptococcus B carrier state complicating childbirth; R11.0 Nausea; O62.0 Primary inadequate contractions; O75.89 Other specified complications of labor and delivery; O69.81X0 Labor and delivery complicated by cord around neck, without compression, not applicable or unspecified; Z37.0 Single live birth; Z3A.40 40 weeks gestation of pregnancy
CPT/HCPCS: 80307; 81001; 85025; 86900; 86901; C1765; J0131; J0690; J1885; J2405; J2540; J2590; J3010; J7120